=== PATIENT | male | born 1955 | race Caucasian/White ===

== ENCOUNTER → 2017-08-17 | Outpatient (REF) ==
[2016-05-03 09:41] VITALS: BMI 42.8
[~2017-08-17] MED LIST: ACE500 PO; ASP325 PO; ASPI-1471 PO; ATOR40TA69 PO; ATR80PT PO; BIS10S PR; CANA1TAB2 PO; CANA300T PO; CHOL200074 PO; CITA-128 PO; CITA-139 PO; CITA-141 PO; CLO75 PO; DUL30 PO; DULA1.5P IM; DULO60CA56 PO; EMPA25TA PO; ENA25 PO; EXEN5PEN3 SQ; EZET10TA41 PO; FUR20 PO; FURO-45 PO; FURO20TA19 PO; GLIM1TAB25 PO; GLY5 PO; GLYB1.2524 PO; GOLYTE PO; INSU100I36 SQ; INSU100I8 SC; LAM25 PO; LEV500 PO; LEVO500T PO; LISI-374 PO; LISI20TA29 PO; LOR5/325 PO; MAGN296S35 PO; MET50 PO; MET500 PO; METF-410 PO; METO25TA23 PO; METO25TA93 PO; METO50TA19 PO; MODA200T39 PO; MOM PO; MULT-820 PO; MULT-885 PO; MULT1CAP59 PO; NAP375 PO; NAP500 PO; OMEG-11 PO; ONDA4TAB PO; OXY10 PO; OXYC-763 PO; OXYC-869 PO; OXYGEN INH; OXYGENHOME INH; PER PO; PHENA200 PO; PIOG30TA3 PO; PIOGLITAZONE PO; POTA2.5T7 PO; PREG100C44 PO; PREG75CA61 PO; SIMV-1 PO; SITA1TAB17 PO; SPIR25TA78 PO; TAM4 PO; TEST2.5G6 TD; TOLT4CAP13 PO; TOPI100T92 PO; TRA50 PO; TRAM-420 PO; VAR05PT PO; VITA150T2 PO; ZOLP-350 PO; [UNRECOGNIZED DRUG - CODE] PO
== END ==
DX: Z02.9 Encounter for administrative examinations, unspecified (principal)

== ENCOUNTER → 2017-08-17 | Outpatient (CLI) | payer OTHER ==
[2016-05-03 09:41] VITALS: BMI 42.8
== END ==
LOC: LAB 08:59
PROVIDERS: ATTEND Internal Medicine Endocrinology, Diabetes & Metabolism
DX: E11.21 Type 2 diabetes mellitus with diabetic nephropathy (principal)
CPT/HCPCS: 83036

== ENCOUNTER → 2017-09-20 | Outpatient (CLI) | payer OTHER ==
[2016-05-03 09:41] VITALS: BMI 42.8
[~2017-09-20] MED LIST changes: +REGADENOSON 0.4 MG/5 ML SYR ONE
--- NOTE | 2017-09-20 17:15 | RT STRESS TEST REPORT ---
FACILITY: [facility] [place] PATIENT NAME: KRISH SCHAFFER : [id number] MR: [id number] V: [id number] EXAM DATE: ORDERING PHYSICIAN: DI JARRETT TECHNOLOGIST: Rory Acquisition Time: 2017-09-20 14:21:45 Total Exercise Time: 00:01:00 Test Indications: Screening for CAD Medications: Protocol: LEXISCAN Max HR: 078 BPM 49% of Pred: 157 BPM Max BP: 110/068 mmHG Max Work Load: 1.0 METS Stress was performed using Lexiscan protocol. He did experience some nausea with the infusion (resolv ed quickly). No significant EKG changes or dysrhythmias were noted. Recovery was uneventful. Await Myoview images. Confirmed by GABRIEL READ ([id number]) on 09/20/2017 5:15:02 PM Referred By: Overread By: GABRIEL READ
--- NOTE | 2017-09-21 08:09 | RADIOLOGY IMAGING REPORT ---
FACILITY: [facility] - [place] PATIENT NAME: Drake Nava : 1955 MR: [id number] V: [id number] EXAM DATE: ORDERING PHYSICIAN: DI JARRETT TECHNOLOG[place]: [place] [facility] [place] N[place] : 1955 Visit/Account:[id number] Date of Sevice: 09/20/2017 EXAMINATION: Single isotope SPECT imaging with regadenoson infusion and gated SPECT imaging. DATE OF EXAMINATION: September 20, 2017. DATE OF INTERPRETATION: September 21, 2017. REQUESTING PHYSICIAN: DI JARRETT. INDICATION: The patient is a 62-year-old male evaluated for coronary artery disease. PROCEDURE: After informed consent the patient received an intravenous injection of 16.1 mCi of Tc-99 m sestamibi followed at an appropriate time interval by rest imaging. The patient then subsequently received an intravenous infusion of 0.4 mg of regadenoson per protocol without complication. Resting heart rate was 58 bpm with a peak heart rate of 78 bpm. Blood pressure at rest was 110 / 68 and fol lowing infusion was 110 / 53. Baseline EKG demonstrates normal sinus rhythm with nonspecific QS wave s V1 through V2. There were no EKG changes of ischemia following infusion. Symptoms were nonspecifi c. The patient then received an intravenous injection of 34.3 mCi of Tc-99m sestamibi followed by st ress imaging. RAW DATA: Examination of the summed raw data revealed a good quality study. MYOCARDIAL PERFUSION: The tomographic images demonstrate a severe decrease in myocardial perfusion t racer uptake in the basal to inferior chowdhury and a moderate decrease in tracer uptake in the basal to mid inferoseptal chowdhury wall seen on both stress and rest images with no reversibility. GATED IMAGES: The gated images demonstrate an ejection fraction 63% with inferior akinesis. IMPRESSION: 1. Abnormal myocardial perfusion scan with evidence of a prior myocardial infarction involving the i nferior and inferoseptal chowdhury. No inducible ischemia noted. 2. Abnormal myocardial perfusion scan. 3. Normal LV systolic function; LVEF 63%. 4. Based on the results of this exam, the patient appears to be at intermediate risk for future cardi ovascular events. Report Dictated By: Tiffanie Winters at 09/21/2017 8:03 AM Report E-Signed By: Tiffanie Winters at 09/21/2017 8:06 AM WSN:[id number]
== END ==
LOC: RESP 00:37
PROVIDERS: ATTEND Nurse Practitioner Family
DX: R94.30 Abnormal result of cardiovascular function study, unspecified (principal)
CPT/HCPCS: 78452; A9500; J2785; 93017

== ENCOUNTER → 2017-10-25 | Outpatient (CLI) | payer OTHER ==
[2016-05-03 09:41] VITALS: BMI 42.8
[~2017-10-25] MED LIST changes: -REGADENOSON 0.4 MG/5 ML SYR ONE
== END ==
LOC: LAB 09:58
PROVIDERS: ATTEND Internal Medicine
DX: I25.10 Atherosclerotic heart disease of native coronary artery without angina pectoris (principal); I10 Essential (primary) hypertension; E78.00 Pure hypercholesterolemia, unspecified
CPT/HCPCS: 36415; 82040; 82247; 82310; 82374; 82435; 82465; 82565; 82947; 83718; 84075; 84132; 84155; 84295; 84450; 84460; 84478; 84520

== ENCOUNTER → 2017-12-04 | Outpatient (CLI) | payer OTHER ==
[2016-05-03 09:41] VITALS: BMI 42.8
== END ==
LOC: LAB 07:40
PROVIDERS: ATTEND Internal Medicine Endocrinology, Diabetes & Metabolism
DX: E11.21 Type 2 diabetes mellitus with diabetic nephropathy (principal)
CPT/HCPCS: 82465; 83036; 83718; 84478

== ENCOUNTER → 2017-12-04 | Outpatient (CLI) | payer OTHER ==
[2016-05-03 09:41] VITALS: BMI 42.8
[2017-12-04 08:15] LABS: PLATELET COUNT, AUTOMATED 157 K/uL (150-450)
== END ==
LOC: LAB 07:43
PROVIDERS: ATTEND Internal Medicine Nephrology
DX: I12.9 Hypertensive chronic kidney disease with stage 1 through stage 4 chronic kidney disease, or unspecified chronic kidney disease (principal); N18.3 Chronic kidney disease, stage 3 (moderate); R80.1 Persistent proteinuria, unspecified
CPT/HCPCS: 36415; 82040; 82247; 82310; 82374; 82435; 82565; 82570; 82947; 84075; 84100; 84132; 84155; 84156; 84295; 84450; 84460; 84520; 85025

== ENCOUNTER 2018-02-20 08:00 | Outpatient (RCR) | payer OTHER ==
[2016-05-03 09:41] VITALS: BMI 42.8
[2018-01-15 19:08] VITALS: BP 104/52
[2018-01-15 19:09] VITALS: BP 92/48
--- NOTE | 2018-01-15 19:41 | CARDIAC REHAB PLAN OF CARE ---
Physician: Cary Kay PROPERTIES SUPERVISOR Patient is being seen: Red Browne Medical Diagnosis: [place], Stent x 1 (2005) Date of Initial Evaluation: SHORT TERM GOALS Short Term Goals Due Date: 02/14/18 Short Term Goals: 62 year old phase II male patient comes to cardiac rehab with CAD and a 2006 [place] with 1 stent placed. The 5'11", 316 pound, diabetic patient has been a heavy smoker for 47 years and did quit two weeks ago. During the initial 6-minute walk test the patient needed 1 stop to rest and achieved 1.6 MPH, with SPO2 levels dropping to 75% on room air, and the rubble placer showing a NSR and max rate reaching 90. The Jan (RPE) scale went from 2 at 1 minute to 7 at minute 6. Short term goals are set to ride a bike at 3.0 METs or higher and include walking either the track or a treadmill at 1.5-2.0 mph achieving a THR zone of 86-102 or 55-65% of max heart rate. Patient will also need to adjust diet to follow a diabetic and heart healthy plan and to reduce sugar and refined carbohydrates. 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 Patient will also adjust diet to diabetic and heart friendly with portion control to allow for a safe weight loss. Jail Goals Met: Enterprise Project Manager Goals Not Met Due To: PATIENT'S GOALS Patient Goals Due Date: 02/14/18 Patient Goals: Patient goals are to improve health, lose weight and remain active. Patient Goals Met: Patient Goals Not Met Due To: Cardiac Rehabilitation Plan of Care Comment: The cardiac rehab staff will monitor, record, and evaluate vitals, ECG, and exercise results to provide the best plan of care for the patient throughout the 36 visit phase II program. CR staff will motivate and educate the patient during visits for rehab. STANLEY
[2018-01-16 13:24] VITALS: BP_SYST 112; BP_SYST 122; BP_DIAS 52; BP_DIAS 56
[2018-01-21 08:36] VITALS: BP 124/60
[2018-01-21 08:37] VITALS: BP 122/58
[2018-01-23 13:02] VITALS: BP 118/68
[2018-01-23 13:03] VITALS: BP 110/60
[2018-01-25 13:05] VITALS: BP 100/56
[2018-01-25 13:06] VITALS: BP 110/58
[2018-01-28 13:00] VITALS: BP 132/64
[2018-01-28 13:01] VITALS: BP 124/60
[2018-02-04 13:02] VITALS: BP 136/60
[2018-02-04 13:04] VITALS: BP 116/58
[2018-02-08 13:18] VITALS: BP 130/54
[2018-02-08 13:19] VITALS: BP 126/60
[2018-02-11 13:06] VITALS: BP 120/62
[2018-02-11 13:07] VITALS: BP 120/62
--- NOTE | 2018-02-13 18:21 | CARDIAC REHAB PLAN OF CARE ---
Physician: Cary Kay ONLINE MARKETING DIRECTOR Patient is being seen: Red Browne Medical Diagnosis: [place], stent x 1 (2005) Date of Initial Evaluation: January 15, 2018 SHORT TERM GOALS Short Term Goals Due Date: 03/18/18 Short Term Goals: 62 year old phase II male patient comes to cardiac rehab with CAD and a 2006 [place] with 1 stent placed. The 5'11", 316 pound, diabetic patient has been a heavy smoker for 47 years and did quit two weeks ago. During the initial 6-minute walk test the patient needed 1 stop to rest and achieved 1.6 MPH, with SPO2 levels dropping to 75% on room air, and the deicer kit assembler showing a NSR and max rate reaching 90. The Jan (RPE) scale went from 2 at 1 minute to 7 at minute 6. Short term goals are set to ride a bike at 3.0 METs or higher and include walking either the track or a treadmill at 1.5-2.0 mph achieving a THR zone of 86-102 or 55-65% of max heart rate. Patient will also need to adjust diet to follow a diabetic and heart healthy plan and to reduce sugar and refined carbohydrates. Short Term Goals Met: Patient has made 9 visits for cardiac rehab and tolerates up to 35 minutes of a mix of moderate level and below moderate level exercise, followed by weight resistance exercise. Patient will have 15 minutes of upright bike achieving 3.0-3.5 METs. Patient does walk laps that will increase his HR in to his target zone. Short Term Goals Not Met Due To: Patient also walks on the treadmill and only is able to tolerate around 1.6 METs. SUPERVISOR AGENCY APPOINTMENTS GOALS Nursing Home Goal Due Date: 04/18/18 Nursing Home Goals: terminal worker goals are to remain consistent with exercise and diet. Patient needs a heart healthy diet with portion control to also start losing weight. Patient is 316 pounds with a healthy BMI max at 179 pounds. Patient also needs to remain tobacco free. Funeral Greeter Goals Met: Nursing Home Goals Not Met Due To: Patient is one third through the program at 12 visits and will need to improve consistency and increase intensity and overall volume of exercise to achieve parts counterman goals. PATIENT'S GOALS Patient Goals Due Date: 03/18/18 Patient Goals: To improve health and extend life and remain active. Patient Goals Met: Patient has complained of left hip pain recently, which he describes as a three year ongoing complaint. On the days this pain is present his workout is shortened. Patient Goals Not Met Due To: Cardiac Rehabilitation Plan of Care Comment: The cardiac rehab staff will continue to monitor, record , and evaluate vitals, ECG, and exercise results to provide the best plan of care throughout the 36 visit phase II program. CR staff will educate and motivate the patient during visits for rehab. STANLEY
[2018-02-15 12:57] VITALS: BP_SYST 110; BP_SYST 134; BP_DIAS 60
[~2018-02-20 08:00] MED LIST changes: -CITA-139 PO; +CITA-145 PO; -METF-410 PO; +METF-411 PO; -PIOG30TA3 PO; +PIOG30TA71 PO; -SPIR25TA78 PO; +SPIR25TA80 PO
[2018-02-20 12:59] VITALS: BP 126/70
[2018-02-20 13:00] VITALS: BP 128/66
--- NOTE | 2018-03-22 17:29 | CARDIAC REHAB PLAN OF CARE ---
Physician: Eliza FITZGERALD Patient is being seen: Red Browne Medical Diagnosis: [place] (2005) Date of Initial Evaluation: January 15, 2018 SHORT TERM GOALS Short Term Goals Due Date: 04/22/18 Short Term Goals: 62 year old phase II male patient comes to cardiac rehab with CAD and a 2006 [place] with 1 stent placed. The 5'11", 316 pound, diabetic patient has been a heavy smoker for 47 years and did quit two weeks ago. During the initial 6-minute walk test the patient needed 1 stop to rest and achieved 1.6 MPH, with SPO2 levels dropping to 75% on room air, and the monitoring and evaluation advisor showing a NSR and max rate reaching 90. The Jan (RPE) scale went from 2 at 1 minute to 7 at minute 6. Short term goals are set to ride a bike at 3.0 METs or higher and include walking either the track or a treadmill at 1.5-2.0 mph achieving a THR zone of 86-102 or 55-65% of max heart rate. Patient will also need to adjust diet to follow a diabetic and heart healthy plan and to reduce sugar and refined carbohydrates. Short Term Goals Met: Patient has made a total of 11 visits and hasn't been to cardiac rehab for 30 days. On February 20, 2018 the patient tolerated 23 minutes on the treadmill at 2 METs, and 17 minutes on the upright bike at 3.4 METs, followed by weight resistance on the rehab chair. Short Term Goals Not Met Due To: Patient has not been able to be consistent with visits and has made very little increase in duration and intensity of exercise through the first 11 visits. Patients weight remains the same. DETENTION GOALS Halfway Goal Due Date: 05/22/18 Halfway Goals: [facility] goals remain the same and that is to be consistent with regular exercise. Patient will need to increase duration and intensity of exercise if the consistency of achieving 150 minutes each week of cardio exercise. Patient also needs to adjust diet and really try to lose weight. Patient also needs to remain smoke free. Play Back Operator Goals Met: Halfway Goals Not Met Due To: None of the longterm goals for exercise or diet and body weight have been met. PATIENT'S GOALS Patient Goals Due Date: 04/22/18 Patient Goals: Patient goals are to improve cardiac and overall health, and to lose weight. Patient would like to remain active. Patient Goals Met: Patient has complained of left hip pain recently, which he describes as a three year ongoing complaint. On the days this pain is present his workout is shortened. Patient Goals Not Met Due To: Cardiac Rehabilitation Plan of Care Comment: The cardiac rehab staff will continue to monitor, record, and evaluate vitals, ECG, and exercise results to provide the best plan of care for the patient throughout the 36 visit phase II program. CR staff will motivate and educate the patient during visits for rehab. STANLEY
== END 2018-02-20 18:00 | disposition home or self-care (01) ==
LOC: CARD 08:00
PROVIDERS: ATTEND Nurse Practitioner Family
DX: I25.10 Atherosclerotic heart disease of native coronary artery without angina pectoris (principal); I25.2 Old myocardial infarction; E11.9 Type 2 diabetes mellitus without complications; Z98.890 Other specified postprocedural states; Z87.891 Personal history of nicotine dependence; Z99.89 Dependence on other enabling machines and devices; M25.552 Pain in left hip
CPT/HCPCS: 93798

== ENCOUNTER → 2018-03-12 | Outpatient (CLI) | payer OTHER ==
[2016-05-03 09:41] VITALS: BMI 42.8
--- NOTE | 2018-03-12 17:19 | RADIOLOGY IMAGING REPORT ---
FACILITY: PATIENT NAME: Drake Nava : 1955 MR: [id number] V: [id number] EXAM DATE: ORDERING PHYSICIAN: ID JARRETT TECHNOLOGIST: Location: [facility] - [place] Patient: Drake Nava : 1955 Visit/Account:[id number] Date of Sevice: 03/12/2018 Exam type: LUMBAR SPINE 2 OR 3 VIEW History: Fall, radiculopathy Comparison: July 07, 2008. Findings: And AP and lateral view of lumbar spine demonstrate five lumbar type vertebral bodies. There is no e vidence of acute fracture or subluxation. There is mild disc space narrowing at L4-5 and L5-S1. Thi s mild disc space narrowing at T11-12 incidentally noted are bilateral iliac stents IMPRESSION: 1. Mild degenerative changes the lumbar spine although no evidence of acute fracture or subluxation seen Report Dictated By: Viri Garcia MD at 03/12/2018 5:13 PM Report E-Signed By: Viri Garcia MD at 03/12/2018 5:15 PM WSN:[id number]
== END ==
LOC: RAD 16:30
PROVIDERS: ATTEND Nurse Practitioner Family
DX: M47.896 Other spondylosis, lumbar region (principal)
CPT/HCPCS: 72100

== ENCOUNTER → 2018-03-29 | Outpatient (CLI) | payer OTHER ==
[2016-05-03 09:41] VITALS: BMI 42.8
--- NOTE | 2018-03-29 17:41 | RADIOLOGY IMAGING REPORT ---
FACILITY: [facility] [place] PATIENT NAME: Drake Nava : 1955 MR: [id number] V: [id number] EXAM DATE: ORDERING PHYSICIAN: DI JARRETT TECHNOLOGIST: Location: [facility] [place] Patient: Drake Nava : 1955 Visit/Account:[id number] Date of Sevice: 03/29/2018 EXAMINATION: MRI lumbar spine without IV contrast HISTORY: Low back pain. COMPARISON: Lumbar spine MRI from 07/07/2008 and lumbar spine radiographs from 03/12/2018. TECHNIQUE: Multi-planar, multi-sequence lumbar spine MRI was performed without intravenous contrast administration. FINDINGS: Alignment: Normal. Vertebral marrow signal: Negative. Distal thoracic cord: Negative. Conus: negative, terminates at T12-L1. Cauda equina: Negative. Paravertebral soft tissues: Negative. Visualized abdominal and pelvic structures: Subcentimeter simple right renal cyst partly visualized. Disc spaces: Lower thoracic spine: Disc desiccation with a minimal broad-based disc protrusion at T12-L1 is new. N o significant central canal or foraminal stenosis. L1-2: Minimal concentric disc bulge and bilateral facet hypertrophy without significant central canal or foraminal stenosis. L2-3: Minimal concentric disc bulge and bilateral facet hypertrophy without significant central canal or foraminal stenosis. L3-4: Normal. L4-5: Mild concentric disc bulge and bilateral facet hypertrophy with ligamentum flavum laxity. Mild bilateral foraminal stenosis is new. No significant central canal stenosis. L5-S1: Minimal concentric disc bulge and bilateral facet hypertrophy without significant central larissa l or foraminal stenosis. IMPRESSION: Mild degenerative disc disease and facet arthropathy is slightly worse, with mild bilateral foraminal stenosis at L4-5. No significant spinal stenosis. Please see the findings for description of individ ual level disease. Report Dictated By: Jihan Troncoso MD at 03/29/2018 5:34 PM Report E-Signed By: Jihan Troncoso MD at 03/29/2018 5:37 PM WSN:[id number]
== END ==
LOC: MRI 04:48
PROVIDERS: ATTEND Nurse Practitioner Family
DX: M51.16 Intervertebral disc disorders with radiculopathy, lumbar region (principal); M48.07 Spinal stenosis, lumbosacral region
CPT/HCPCS: 72148

== ENCOUNTER → 2018-05-30 | Outpatient (CLI) | payer OTHER ==
[2016-05-03 09:41] VITALS: BMI 42.8
[~2018-05-30] MED LIST changes: -METF-411 PO; +METF-450 PO
== END ==
LOC: LAB 09:32
PROVIDERS: ATTEND Nurse Practitioner Family
DX: N18.3 Chronic kidney disease, stage 3 (moderate) (principal); E11.9 Type 2 diabetes mellitus without complications; E66.01 Morbid (severe) obesity due to excess calories
CPT/HCPCS: 36415; 82040; 82247; 82310; 82374; 82435; 82465; 82565; 82947; 83036; 83718; 84075; 84132; 84155; 84295; 84450; 84460; 84478; 84520

== ENCOUNTER 2018-08-04 15:10 | Inpatient (IN) | payer OTHER ==
[~2018-08-04] VITALS: Ht 177.8 cm; Wt 145.1 kg
[2018-08-04] MEDS ORDERED: ALBUTEROL/IPRATROPIUM 3 ML NEB NEB ONE ×2 (16:10→19:10)
[2018-08-04 16:19] LABS: PLATELET COUNT, AUTOMATED 276 K/uL (150-450)
--- NOTE | 2018-08-04 16:49 | ER Report ---
History and Physical Time Seen By MD: 15:15 Hx. of Stated Complaint: PAST 2 DAYS TROUBLE BREATHING, WHEEZING, COUGHING UP GREEN MUCUS, RA SATS 65%, SORE THROAT AND DIFFICULTY SWALLOWING HPI/ROS CHIEF COMPLAINT: Difficulty breathing HISTORY OF PRESENT ILLNESS: 63-year-old diabetic, sleep apnea, half a pack-a-day smoker, but no reported coronary artery disease, COPD, CHF, presents with 2 days of dyspnea, cough productive of green sputum, myalgias, sore throat, nausea, chills. Patient has no known sick contacts, no recent travel, has had increasing symptoms as above that he rates as severe. He has not had similar symptoms. REVIEW OF SYSTEMS: Constitutional: chills Eyes: No discharge. ENT: sore throat, painful swallowing Cardiovascular: No chest pain, no palpitations. Respiratory: above Gastrointestinal: No abdominal pain, no vomiting. Genitourinary: no change in urination Musculoskeletal: No back pain. Skin: No rashes. Neurological: moderate headache Remainder of the 14 system rev: Yes Allergies: Coded Allergies: duloxetine (Verified Allergy, Unknown, 08/04/18) Home Meds Reported Medications Donepezil Hcl (DONEPEZIL HCL) 10 Mg Tablet, 10 MG PO QDAY, TAB 08/04/18 Pioglitazone Hcl (PIOGLITAZONE HCL) 30 Mg Tablet, 30 MG PO QDAY 08/04/18 Metformin Hcl (METFORMIN HCL) 1,000 Mg Tablet, 1 TAB PO BID, TAB 08/04/18 Glimepiride (GLIMEPIRIDE) 2 Mg Tablet, 2 MG PO BID 08/04/18 Insulin Degludec (Tresiba Flextouch U-100) 100 Unit/Ml (3 Ml) Insuln.pen 08/04/18 Dulaglutide (Trulicity) 1.5 Mg/0.5 Ml Pen.injctr, 1.75 MG IM QWEEK 02/01/17 Canagliflozin (INVOKANA) 300 Mg Tablet, 300 MG PO DAILY 02/01/17 Metoprolol Succinate (METOPROLOL SUCCINATE) 50 Mg Tab.er.24h, 1 TAB PO BID, TAB 02/01/17 Citalopram Hydrobromide (CITALOPRAM HBR) 20 Mg Tablet, 40 MG PO QDAY, #5 TAB 05/18/16 Furosemide (FUROSEMIDE) 20 Mg Tablet, 1 TAB PO QDAY, TAB 10/20/16 Atorvastatin Calcium (ATORVASTATIN CALCIUM) 40 Mg Tablet, 1 TAB PO QPM, TAB 05/01/16 Lisinopril (LISINOPRIL) 20 Mg Tablet, 20 MG PO QPM, TAB 05/01/16 Oxygen (OXYGEN) Inha, 3 L INH QHS, L 05/01/16 Ezetimibe (ZETIA) 10 Mg Tablet, 10 MG PO QDAY, TAB 05/01/16 Multivitamin (DAILY VITAMIN) 1 Each Tablet, 1 EACH PO QDAY 02/24/15 Vitamin B Complex & Vit C No.4 (SUPER B COMPLEX) 150 Mg Tablet, 150 MG PO QDAY 02/24/15 Cholecalciferol (Vitamin D3) (VITAMIN D-3) 2,000 Unit Capsule, 5000 UNIT PO QDAY, CAPSULE 02/24/15 Aspirin (ASPIR 81) 81 Mg Tablet.dr, 81 MG PO QDAY, TAB 02/24/15 Discontinued Reported Medications [place]-3 Fatty Acids/Fish Oil (FISH OIL 1,000 MG CAPSULE) 1 Each Capsule, 1 EACH PO DAILY, CAPSULE 02/01/17 Insulin Degludec (Tresiba Flextouch U-100) 100 Unit/Ml (3 Ml) Insuln.pen, 20 UNITS SC QAM 02/01/17 [poiglitazone] No Conflict Check, 30 MG PO DAILY 02/01/17 Glimepiride (GLIMEPIRIDE) 1 Mg Tablet, 1 MG PO BID 02/01/17 Metformin Hcl (METFORMIN HCL) 500 Mg Tablet, 1 TAB PO BID, TAB 02/01/17 Spironolactone (SPIRONOLACTONE) 25 Mg Tablet, 0.5 TAB PO QODAY, TAB 05/18/16 Reviewed Nurses Notes: Yes Old Medical Records Reviewed: Yes Hx Smoking: Yes (5 cigarettes per day X 40+YRS) Smoking Status: Current: Every Day Smoker Exposure to Second Hand Smoke?: Yes Hx Substance Use Disorder: No Hx Alcohol Use: No Constitutional Vital Sign - Last 24 Hours 08/04/18 08/04/18 08/04/18 08/04/18 15:52 16:01 16:28 16:28 Temp 98.9 Pulse 92 91 Resp 22 20 B/P (MAP) 129/69 Pulse Ox 65 89 O2 Delivery Room Air Nasal Cannula O2 Flow Rate 4.0 4.0 08/04/18 17:37 Temp 100.5 Physical Exam General Appearance: The patient is alert, acutely dyspneic, frequent frothy cough. Eyes: Pupils equal and round no pallor or injection. ENT, Mouth: Mucous membranes are moist. Erythematous oropharynx Respiratory: no retractions, occ basilar ronchi Cardiovascular: Regular rate and rhythm. ii/vi murmur, slightly distant heart sounds Gastrointestinal: Abdomen is soft and non tender, no masses, bowel sounds normal. Neurological: alert, oriented, moves all ext Skin: Warm and dry, no rashes. Musculoskeletal: Extremities mild edema DIFFERENTIAL DIAGNOSIS: After history and physical exam differential diagnosis was considered for shortness of breath including but not limited to pulmonary infectious process, COPD, asthma, pulmonary embolus and congestive heart failure, acs, or other emergent etiology. Medical Decision Making Data Points Result Diagram: 08/04/18 1547 08/04/18 1547 Laboratory Hematology Test 08/04/18 15:47 08/04/18 16:33 08/04/18 16:43 Red Blood Count 4.71 M/uL (4.00-5.60) Mean Corpuscular Volume 85.0 fL (80.0-96.0) Mean Corpuscular Hemoglobin 26.7 pg (26.0-33.0) Mean Corpuscular Hemoglobin Concent 31.4 g/dL (32.0-36.0) Red Cell Distribution Width 15.8 % (11.5-14.5) Mean Platelet Volume 8.6 fL (7.2-11.1) Neutrophils (%) (Auto) 82.1 % (39.4-72.5) Lymphocytes (%) (Auto) 5.1 % (17.6-49.6) Monocytes (%) (Auto) 12.2 % (4.1-12.4) Eosinophils (%) (Auto) 0.4 % (0.4-6.7) Basophils (%) (Auto) 0.2 % (0.3-1.4) Nucleated RBC Relative Count (auto) 0.1 /100WBC Neutrophils # (Auto) 12.1 K/uL (2.0-7.4) Lymphocytes # (Auto) 0.8 K/uL (1.3-3.6) Monocytes # (Auto) 1.8 K/uL (0.3-1.0) Eosinophils # (Auto) 0.1 K/uL (0.0-0.5) Basophils # (Auto) 0.0 K/uL (0.0-0.1) Nucleated RBC Absolute Count (auto) 0.02 K/uL Sodium Level 141 mmol/L (137-145) Potassium Level 4.4 mmol/L (3.5-5.0) Chloride Level 109 mmol/L (98-107) Carbon Dioxide Level 20 mmol/L (22-30) Blood Urea Nitrogen 40 mg/dl (9-21) Creatinine 2.10 mg/dl (0.66-1.25) Glomerular Filtration Rate Calc 32.0 Random Glucose 74 mg/dl (75-110) Lactate 1.6 mmol/L (0.7-2.1) Calcium Level 9.2 mg/dl (8.4-10.2) Total Bilirubin 0.4 mg/dl (0.2-1.3) Aspartate Amino Transf (AST/SGOT) 35 U/L (0-35) Alanine Aminotransferase (ALT/SGPT) 39 U/L (0-56) Alkaline Phosphatase 114 U/L (0-126) Troponin I 0.075 ng/ml B-Type Natriuretic Peptide 203 pg/ml (0-100) Total Protein 5.9 g/dl (6.3-8.2) Albumin 3.2 g/dl (3.5-5.0) Lipase 70 U/L (23-300) Influenza Virus Type A (PCR) Negative (NEGATIVE) Influenza Virus Type B (PCR) Negative (NEGATIVE) Blood Gas Puncture Site Right radial Blood Gas Patient Temperature 99.1 DEGREES Arterial Blood pH 7.31 (7.35-7.45) Arterial Blood Partial Pressure CO2 37 mmHg (32-37) Arterial Blood Partial Pressure O2 59 mmHg (60-80) Arterial Blood HCO3 19 mmol/L (20-26) Arterial Blood Oxygen Saturation 88 % (92-100) Arterial Blood Base Excess -8.0 mmol/L Eduardo Test Acceptable Oxygen Liters/Minute 37 Chemistry Test 08/04/18 15:47 08/04/18 16:33 08/04/18 16:43 White Blood Count 14.7 k/uL (4.5-11.0) Red Blood Count 4.71 M/uL (4.00-5.60) Hemoglobin 12.6 g/dL (14.0-18.0) Hematocrit 40.1 % (42.0-52.0) Mean Corpuscular Volume 85.0 fL (80.0-96.0) Mean Corpuscular Hemoglobin 26.7 pg (26.0-33.0) Mean Corpuscular Hemoglobin Concent 31.4 g/dL (32.0-36.0) Red Cell Distribution Width 15.8 % (11.5-14.5) Platelet Count 276 K/uL (150-450) Mean Platelet Volume 8.6 fL (7.2-11.1) Neutrophils (%) (Auto) 82.1 % (39.4-72.5) Lymphocytes (%) (Auto) 5.1 % (17.6-49.6) Monocytes (%) (Auto) 12.2 % (4.1-12.4) Eosinophils (%) (Auto) 0.4 % (0.4-6.7) Basophils (%) (Auto) 0.2 % (0.3-1.4) Nucleated RBC Relative Count (auto) 0.1 /100WBC Neutrophils # (Auto) 12.1 K/uL (2.0-7.4) Lymphocytes # (Auto) 0.8 K/uL (1.3-3.6) Monocytes # (Auto) 1.8 K/uL (0.3-1.0) Eosinophils # (Auto) 0.1 K/uL (0.0-0.5) Basophils # (Auto) 0.0 K/uL (0.0-0.1) Nucleated RBC Absolute Count (auto) 0.02 K/uL Glomerular Filtration Rate Calc 32.0 Lactate 1.6 mmol/L (0.7-2.1) Calcium Level 9.2 mg/dl (8.4-10.2) Total Bilirubin 0.4 mg/dl (0.2-1.3) Aspartate Amino Transf (AST/SGOT) 35 U/L (0-35) Alanine Aminotransferase (ALT/SGPT) 39 U/L (0-56) Alkaline Phosphatase 114 U/L (0-126) Troponin I 0.075 ng/ml B-Type Natriuretic Peptide 203 pg/ml (0-100) Total Protein 5.9 g/dl (6.3-8.2) Albumin 3.2 g/dl (3.5-5.0) Lipase 70 U/L (23-300) Influenza Virus Type A (PCR) Negative (NEGATIVE) Influenza Virus Type B (PCR) Negative (NEGATIVE) Blood Gas Puncture Site Right radial Blood Gas Patient Temperature 99.1 DEGREES Arterial Blood pH 7.31 (7.35-7.45) Arterial Blood Partial Pressure CO2 37 mmHg (32-37) Arterial Blood Partial Pressure O2 59 mmHg (60-80) Arterial Blood HCO3 19 mmol/L (20-26) Arterial Blood Oxygen Saturation 88 % (92-100) Arterial Blood Base Excess -8.0 mmol/L Eduardo Test Acceptable Oxygen Liters/Minute 37 EKG/Imaging EKG Interpretation 12 lead EKG: Rhythm: normal sinus rhythm [place]: normal QRS: low voltage ST segments: no sig elevation/ depression. Flipped I III [ ] Monitor Interpretation: Normal Sinus Rhythm ED Course/Re-evaluation ED Course 63-year-old diabetic with chronic kidney disease presents with 2 days of upper respiratory and lower respiratory symptoms. His initial O2 sats are in the mid 60s. He responds to NC and maintains sats in ED. Ultimately, findings c/w poss viral illness as no clear bact source, with prob exacerbation of chf (though no clear underlying dx), and elevated trop due to either demand ischemia vs spurious due to ckd, but less likely as primary source. Upon evaluation by hospitalist, he feels that findings may be c/w bact pneumonia and will start abx, cs. Decision to Disposition Date: Aug 04, 2018 Decision to Disposition Time: 17:56 Depart Departure Latest Vital Signs Vital Signs Date Time Temp Pulse Resp B/P (MAP) Pulse Ox O2 Delivery O2 Flow Rate FiO2 08/04/18 17:37 100.5 08/04/18 16:28 89 Nasal Cannula 4.0 08/04/18 16:28 91 20 08/04/18 15:52 129/69 Impression: Primary Impression: Hypoxemia Additional Impressions: Elevated troponin Pulmonary congestion Condition: Stable Disposition: Admitted from ER Referrals: DI JARRETT (PCP) Problem Qualifiers ANA GRAVES MD Aug 04, 2018 16:49
[2018-08-04] MEDS ORDERED: NS(*) 0.9% 1000 ML BAG 1,000 ML IV ONE ×2 (16:50→19:00)
--- NOTE | 2018-08-04 17:21 | RADIOLOGY IMAGING REPORT ---
[place] [facility] [place] NAME: Drake Nava : 1955 MR: [id number] V: [id number] EXAM DATE: ORDERING PHYSICIAN: ANA GRAVES TECHNOLOGIST: [place] [facility] [place] N[place] : 1955 Visit/Account:[id number] Date of Sevice: 08/04/2018 CHEST SINGLE AP Indication: Dyspnea.. Comparison: 05/01/2016. Findings: Cardiac silhouette remains mildly enlarged but unchanged given the difference in technique. Mediasti nal silhouette and pulmonary vessels within normal limits. There is no focal infiltrate or lobar consolidation. No pneumothorax or pleural effusion. No discrete nodule. Mild interstitial changes are again present. Upper abdomen is unremarkable. No acute bony abnormality. IMPRESSION: 1. Stable mildly enlarged cardiac silhouette. There are again mild interstitial changes which could be due to very early edema versus chronic underlying interstitial changes. No focal infiltrate. Report Dictated By: Juan Love at 08/04/2018 5:17 PM Report E-Signed By: Juan Love at 08/04/2018 5:19 PM WSN:[id number]
[2018-08-04] MEDS ORDERED: LIDOCAINE 2% VISC SLN 15ML UDC PO ONE (17:45)
[2018-08-04] MEDS ORDERED: DONE10TA38 PO (18:13)
[2018-08-04] MEDS ORDERED: INSU100I8 SQ (18:13)
[2018-08-04] MEDS ORDERED: METF-452 PO (18:13)
[2018-08-04] MEDS ORDERED: PIOG30TA71 PO (18:13)
[2018-08-04] MEDS ORDERED: GLIM2TAB43 PO (18:13)
[2018-08-04] MEDS ORDERED: ALBUTEROL 2.5 MG/3 ML NEB NEB PRN (19:00)
[2018-08-04] MEDS ORDERED: ACETAMINOPHEN 325 MG TAB PO ONE (19:00)
[2018-08-04] MEDS ORDERED: methylPREDNIS SUCC 125 MG/2ML IVP ONE (19:05)
[2018-08-04] MEDS ORDERED: NICOTINE INH SYSTEM 10 MG/INH INH PRN (19:10)
[2018-08-04 19:37] VITALS: BP 96/52
--- NOTE | 2018-08-04 19:40 | History & Physical ---
History of Present Illness History of Present Illness 63yo male with a h/o obesity, cigarette smoking, T2DM and CAD who came to the ER for cough and SOB. He developed a cough about a week ago. 3 days ago, the cough became productive with green sputum, he became more dyspneic, started wearing his O2 during the day at 3 liters (normally just at night), developed a sore throat that hurt worse with swallowing and developed 2 loose stools a day. Today, he was feeling more dyspneic and came to the ER. He has had chills for a couple of days. He denies new LE edema, orthopnea, nausea, or vomiting. In the ER, he was hypoxic on RA and was placed on O2. He received a DuoNeb and about 250cc of NS. He reports that the O2 made him feel the best. History Problems: (1) Obesity, morbid Status: Chronic (2) Type II diabetes mellitus Status: Chronic (3) Coronary artery disease Status: Chronic (4) Benign hypertension Status: Chronic (5) Osteoarthritis Status: Chronic (6) Depression Status: Chronic (7) SARAH (obstructive sleep apnea) Status: Chronic (8) CKD (chronic kidney disease) stage 3, GFR 30-59 ml/min Status: Chronic Home Meds Reported Medications Donepezil Hcl (DONEPEZIL HCL) 10 Mg Tablet, 10 MG PO QDAY, TAB 08/04/18 Pioglitazone Hcl (PIOGLITAZONE HCL) 30 Mg Tablet, 30 MG PO QDAY 08/04/18 Metformin Hcl (METFORMIN HCL) 1,000 Mg Tablet, 1 TAB PO BID, TAB 08/04/18 Glimepiride (GLIMEPIRIDE) 2 Mg Tablet, 2 MG PO BID 08/04/18 Insulin Degludec (Tresiba Flextouch U-100) 100 Unit/Ml (3 Ml) Insuln.pen 08/04/18 Dulaglutide (Trulicity) 1.5 Mg/0.5 Ml Pen.injctr, 1.75 MG IM QWEEK 02/01/17 Canagliflozin (INVOKANA) 300 Mg Tablet, 300 MG PO DAILY 02/01/17 Metoprolol Succinate (METOPROLOL SUCCINATE) 50 Mg Tab.er.24h, 1 TAB PO BID, TAB 02/01/17 Citalopram Hydrobromide (CITALOPRAM HBR) 20 Mg Tablet, 40 MG PO QDAY, #5 TAB 05/18/16 Furosemide (FUROSEMIDE) 20 Mg Tablet, 1 TAB PO QDAY, TAB 05/18/16 Atorvastatin Calcium (ATORVASTATIN CALCIUM) 40 Mg Tablet, 1 TAB PO QPM, TAB 05/01/16 Lisinopril (LISINOPRIL) 20 Mg Tablet, 20 MG PO QPM, TAB 05/01/16 Oxygen (OXYGEN) Inha, 3 L INH QHS, L 05/01/16 Ezetimibe (ZETIA) 10 Mg Tablet, 10 MG PO QDAY, TAB 05/01/16 Multivitamin (DAILY VITAMIN) 1 Each Tablet, 1 EACH PO QDAY 02/24/15 Vitamin B Complex & Vit C No.4 (SUPER B COMPLEX) 150 Mg Tablet, 150 MG PO QDAY 02/24/15 Cholecalciferol (Vitamin D3) (VITAMIN D-3) 2,000 Unit Capsule, 5000 UNIT PO QDAY, CAPSULE 02/24/15 Aspirin (ASPIR 81) 81 Mg Tablet.dr, 81 MG PO QDAY, TAB 02/24/15 Discontinued Reported Medications Arnold-3 Fatty Acids/Fish Oil (FISH OIL 1,000 MG CAPSULE) 1 Each Capsule, 1 EACH PO DAILY, CAPSULE 02/01/17 Insulin Degludec (Tresiba Flextouch U-100) 100 Unit/Ml (3 Ml) Insuln.pen, 20 UNITS SC QAM 02/01/17 [poiglitazone] No Conflict Check, 30 MG PO DAILY 02/01/17 Glimepiride (GLIMEPIRIDE) 1 Mg Tablet, 1 MG PO BID 02/01/17 Metformin Hcl (METFORMIN HCL) 500 Mg Tablet, 1 TAB PO BID, TAB 02/01/17 Spironolactone (SPIRONOLACTONE) 25 Mg Tablet, 0.5 TAB PO QODAY, TAB 05/18/16 Allergies: Coded Allergies: duloxetine (Verified Allergy, Unknown, 08/04/18) Other Social/Family Hx Lives with . Retired. Smokes 8 cigarettes a day Hx Smoking: Yes (5 cigarettes per day X 40+YRS) Smoking Status: Current: Every Day Smoker Exposure to Second Hand Smoke?: Yes Caffeine Intake: Coffee Caffeine/Cups Per Day: 12-18 Hx Alcohol Use: No Hx Substance Use Disorder: No Social Drug Use: Never Review of Systems All Systems Reviewed/Normal: Yes, Except as Noted Exam Vital Signs Vital Signs Date Time Temp Pulse Resp B/P (MAP) Pulse Ox O2 Delivery O2 Flow Rate FiO2 08/04/18 19:00 127/64 (85) 08/04/18 18:55 101.1 08/04/18 18:50 93 32 91 08/04/18 16:28 Nasal Cannula 4.0 General Appearance: Alert, Awake, Other (Moderate WOB. Wet cough) Neuro: No Gross deficits ENT: Moist Mucous Membranes, Oropharynx Clear, Posterior Pharynx Clear Cardiovascular: Other (Distant heart tones, regular) Respiratory: Other (Diffuse exp wheezes and course BS) GI: Abd Soft and Non-Tender Extremities: No Edema (purplish pigmentation to shins bilaterally) Integumentary: No Jaundice, No Cyanosis Medical Decision Making Data Points Result Diagram: 08/04/18 1547 08/04/18 1547 Item Value Date Time B-Type Natriuretic Peptide 203 pg/ml H 08/04/18 1547 Troponin I 0.075 ng/ml 08/04/18 1547 Total Bilirubin 0.4 mg/dl 08/04/18 1547 Aspartate Amino Transf (AST/SGOT) 35 U/L 08/04/18 1547 Alanine Aminotransferase (ALT/SGPT) 39 U/L 08/04/18 1547 Alkaline Phosphatase 114 U/L 08/04/18 1547 Lipase 70 U/L 08/04/18 1547 Carbon Dioxide Level 20 mmol/L L 08/04/18 1547 Arterial Blood pH 7.31 L 08/04/18 1643 Arterial Blood Partial Pressure CO2 37 mmHg 08/04/18 1643 Arterial Blood Partial Pressure O2 59 mmHg L 08/04/18 1643 Arterial Blood HCO3 19 mmol/L L 08/04/18 1643 Arterial Blood Oxygen Saturation 88 % L 08/04/18 1643 Lactate 1.6 mmol/L 08/04/18 1547 Neutrophils (%) (Auto) 82.1 % H 08/04/18 1547 Lymphocytes (%) (Auto) 5.1 % L 08/04/18 1547 Monocytes (%) (Auto) 12.2 % 08/04/18 1547 Eosinophils (%) (Auto) 0.4 % 08/04/18 1547 Basophils (%) (Auto) 0.2 % L 08/04/18 1547 Influenza Virus Type A (PCR) Negative 08/04/18 1633 Influenza Virus Type B (PCR) Negative 08/04/18 1633 EKG / Imaging EKG Interpretation Waiting for ECG to load on computer Imaging CXR - by my interpretation there are diffusely prominent pulmonary vascular markings which is unchanged from previous, but now has loss of the left hemid iaphragm and blunting of the left costophrenic angle concerning for an infiltrate. Radiologist read: 1. Stable mildly enlarged cardiac silhouette. There are again mild interstitial changes which could be due to very early edema versus chronic underlying interstitial changes. No focal infiltrate. Assessment and Plan Problems: (1) Pneumonia, bacterial Status: Acute Assessment & Plan: He presented with a week of a cough, 3 days of a productive cough with chills and increased work of breathing. He has hypoxia,an elevated WBC and a new opacity in the left base by CXR. He will be started on doxycyclin e and ceftriaxone. He will also be given methylprednisolone with scheduled DuoNeb and prn albuterol because of wheezing on exam and cigarette use. Because of SARAH, will use BiPAP while sleeping if he tolerates it. (2) Elevated brain natriuretic peptide (BNP) level Status: Acute Assessment & Plan: Likely secondary to the strain of the illness. He had a normal EF by myoview about a year ago. Recheck BNP in the morning. (3) Elevated troponin Status: Acute Assessment & Plan: Secondary to CKD and strain of illness. The ECG is reportedly not worrisome, but still waiting for it to load in the computer. Check troponin in the morning. Continue his chronic ASA and statin for his CAD. (4) CKD (chronic kidney disease) stage 3, GFR 30-59 ml/min Status: Chronic Assessment & Plan: Baseline creatinine is about 1.8. It is 2.1 currently. He reports decreased fluid intake over the last couple of days. He is chronically on Lasix for edema, which will be held and lisinopril will be held. Will gently hydrate a total of one liter and follow BMP. (5) Type II diabetes mellitus Status: Chronic Assessment & Plan: Will continue his chronic glimepiride and change the Tresiba to Lantus. Invokana, Trulicity, and metformin will be held. AC and HS glucose with SSI level 2 to cover. (6) Benign hypertension Status: Chronic Assessment & Plan: Hold chronic lisinopril secondary to elevated creatinine and continue metoprolol with parameters. (7) Depression Status: Chronic Assessment & Plan: Continue chronic citalopram, but will hold his donepezil secondary to QTc prolongation. (8) SARAH (obstructive sleep apnea) Status: Chronic (9) Obesity, morbid Status: Chronic Copies to: DI JARRETT SPECTROGRAPHER ; Venous Thromboembolism Antithrombotics Is Pt On Any Antithrombotics?: No Exam Sepsis Risk: No Definite Risk WHIT HODGES MD Aug 04, 2018 19:40
[2018-08-04] MEDS ORDERED: METO25TA93 PO (19:43)
[2018-08-04] MEDS: cefTRIAXone 2 GM VIAL IVP SCH (19:51)
[2018-08-04] MEDS ORDERED: NICOTINE CARTRIDGE 1 EA PO PRN (19:55)
[2018-08-04 20:10] VITALS: BP 109/49
[2018-08-04] MEDS ORDERED: AZITHROMYCIN(*) 500 MG 500 MG in NS(*) 0.9% 250 ML BAG 250 ML IVPB SCH (21:00)
[2018-08-04] MEDS: METOPROLOL TART 50 MG TAB PO SCH (21:00)
[2018-08-04] MEDS: DOXYCYCLINE HYCL 100 MG VIAL 100 MG in NS(*) 0.9% 250 ML BAG 250 ML IV SCH (21:00)
[2018-08-04 21:27] VITALS: BP 121/63
[2018-08-04] MEDS: GLIMEPIRIDE 2 MG TAB PO SCH (21:39)
[2018-08-04] MEDS: ATORVASTATIN 40 MG TAB PO SCH (21:40)
[2018-08-04] MEDS: guaiFENesin 600 MG TABCR PO SCH (21:40)
[2018-08-04 22:50] VITALS: BP 135/66
--- NOTE | 2018-08-04 22:58 | EKG ---
FACILITY: [facility] PATIENT NAME: KRISH SCHAFFER : [id number] MR: [id number] V: [id number] EXAM DATE: ORDERING PHYSICIAN: ANA GRAVES TECHNOLOGIST: MARJORIE Garner Reason : sob, cp Blood Pressure : / mmHG Vent. Rate : 090 BPM Atrial Rate : 090 BPM P-R Int : 196 ms QRS Dur : 086 ms QT Int : 354 ms P-R-T Axes : 052 042 014 degrees QTc Int : 433 ms Normal sinus rhythm Low voltage QRS Cannot rule out Anterior infarct , age undetermined No ST-T abnormalities When compared with ECG of 01-MAY-2016 18:30, Relatively unchanged Confirmed by WHIT HODGES ([id number]) on 08/05/2018 6:39:18 AM Referred By: Confirmed By:WHIT HODGES
[2018-08-05] VITALS (8 sets, daily range): BP systolic 101–132; BP diastolic 54–76; Ht 177.8 cm; Wt 145.1 kg
[2018-08-05] MEDS: methylPREDNIS SUCC 125 MG/2ML IVP SCH ×3 (03:17→18:57)
[2018-08-05] MEDS: ALBUTEROL/IPRATROPIUM 3 ML NEB NEB SCH ×4 (05:35→16:58)
[2018-08-05 06:07] LABS: PLATELET COUNT, AUTOMATED 256 K/uL (150-450)
[2018-08-05] MEDS: INSULIN HUM LISPRO 100 UN/ML 3 ML VIAL SUBQ PRN ×4 (07:58→21:43)
[2018-08-05] MEDS: ASPIRIN 81 MG ENTERIC COATED PO SCH (08:46)
[2018-08-05] MEDS: METOPROLOL TART 50 MG TAB PO SCH (08:46)
[2018-08-05] MEDS: CITALOPRAM HYDROBROM 20 MG TAB PO SCH (08:46)
[2018-08-05] MEDS: PIOGLITAZONE HCL 15 MG TAB PO SCH (08:46)
[2018-08-05] MEDS: EZETIMIBE 10 MG TAB PO SCH (08:46)
[2018-08-05] MEDS: GLIMEPIRIDE 2 MG TAB PO SCH ×2 (08:46→21:39)
[2018-08-05] MEDS: guaiFENesin 600 MG TABCR PO SCH ×2 (08:46→21:39)
[2018-08-05] MEDS: ENOXAPARIN 30 MG/0.3 ML SYR SC SCH (08:47)
[2018-08-05] MEDS ORDERED: INSULIN GLARGINE 100 U/ML 3 ML PEN SUBQ SCH (09:00)
[2018-08-05] MEDS: DOXYCYCLINE HYCL 100 MG VIAL 100 MG in NS(*) 0.9% 250 ML BAG 250 ML IV SCH ×2 (09:42→21:38)
--- NOTE | 2018-08-05 09:46 | Hospitalist Progress Note ---
Subjective Progress Notes Subjective He was admitted for pneumonia. He reports some improvement in symptoms, but is still feeling SOB and has a large amount of sputum production. Patient Complains of: Cardiovascular: No: Chest Pain Respiratory: Cough, Congestion, Shortness of Breath Physical Exam Vital Signs Date Time Temp Pulse Resp B/P (MAP) Pulse Ox O2 Delivery O2 Flow Rate FiO2 08/05/18 09:09 95 18 08/05/18 09:01 92 Nasal Cannula 7.0 08/05/18 06:46 97.6 102/65 (77) 08/05/18 04:00 60.0 Intake and Output 08/05/18 07:00 Intake Total 650 ml Balance 650 ml Intake Oral 150 ml IV Total 500 ml # Voids 2 General Appearance: Alert, Awake, No Acute Distress, Afebrile Neuro: No Gross deficits Cardiovascular: Regular Rate and Rhythm Respiratory: No Respiratory Distress, Other (diminished bilateral bases) GI: Soft and Non-Tender Extremities: Warm, Perfused Psych: Alert & Oriented X3, Appropriate Mood & Affect Result Diagram: 08/05/18 0550 08/05/18 0550 Monitor Interpretation: Normal Sinus Rhythm Assessment and Plan Problems: (1) Pneumonia, bacterial Status: Acute Assessment & Plan: He presented with a week of a cough, 3 days of a productive cough with chills and increased work of breathing. He has hypoxia,an elevated WBC and a new opacity in the left base by CXR. He will be started on doxycycline and ceftriaxone. He will also be given methylprednisolone with scheduled DuoNeb and prn albuterol because of wheezing on exam and cigarette use. Because of SARAH, will use BiPAP while sleeping if he tolerates it. (2) Elevated brain natriuretic peptide (BNP) level Status: Acute Assessment & Plan: Likely secondary to the strain of the illness. He had a normal EF by myoview about a year ago. BNP decreasing this morning . (3) Elevated troponin Status: Acute Assessment & Plan: Secondary to CKD and strain of illness. ECG done in ER shows NSR. Troponin this morning is decreasing. Continue his chronic ASA and statin for his CAD. (4) CKD (chronic kidney disease) stage 3, GFR 30-59 ml/min Status: Chronic Assessment & Plan: Baseline creatinine is about 1.8. Upon admission creatinine was 2.1, decreased to 1.9 this morning. He reports decreased fluid intake over the last couple of days. He is chronically on Lasix for edema, which will be held and lisinopril will be held. He was gently hydrated a total of one liter and follow BMP. (5) Type II diabetes mellitus Status: Chronic Assessment & Plan: Will continue his chronic glimepiride and change the Tresiba to Lantus. Invokana, Trulicity, and metformin will be held. AC and HS glucose with SSI level 2 to cover. (6) Benign hypertension Status: Chronic Assessment & Plan: Hold chronic lisinopril secondary to elevated creatinine and continue metoprolol with parameters. (7) Depression Status: Chronic Assessment & Plan: Continue chronic citalopram, but will hold his donepezil secondary to QTc prolongation. (8) SARAH (obstructive sleep apnea) Status: Chronic (9) Obesity, morbid Status: Chronic Exam Sepsis Risk: Severe Sepsis Risk PAWAN WONG Aug 05, 2018 09:46
[2018-08-05] MEDS ORDERED: NS(*) 0.9% 250 ML BAG 250 ML ONE (09:49)
--- NOTE | 2018-08-05 12:27 | Antimicrobial Stewardship ---
Antimicrobial Stewardship Empiricly appropriate: Yes (CAP- doxycycline and Ceftriaxone) Significant PMH: Yes (DM2, SARAH, ) Support empiric regimen: Yes Comment Started on 08/04/18 - Doxycycline and Ceftriaxone Approriate Cultures done: Yes (Sputum Cx pending, Blood Cx NA) Renal/Hepatic dosing: Yes (CrCl = 37 ml/min) Comment No renal adjustment required for doxycycline or ceftriaxone IV to PO Opportunity: No (WBC still elevated, not yet afebrile for 48H) Determine cumulative duration: Day 2 of treatment Determine standard duration: 7 days total Comment 63 yo M with a history SARAH, CAD, DM2 with complaints of SOB, sputum, week of cough, chills. Chest Xray showed LLL opacity in L base Tmax 101.1 O2 at 7L WBC 14.7 (82.1%) BUN 40 Scr 2.10 Lactate 1.6 08/04 Sputum - NGTD Influenza A and B (-) 1. Pneumonia - Plan to continue treatment with Doxycycline and Ceftriaxone, switch to oral antibiotics when afebrile x 48H, then complete treatment with 7- 10 days of therapy. Will monitor and watch sputum culture and adjust antibi otics as appropriate. Cyndi Phan, PharmD, BCOP CYNDI PHAN Aug 05, 2018 12:27
[2018-08-05] MEDS ORDERED: CITA-141 PO (13:40)
[2018-08-05] MEDS ORDERED: METF-450 PO (13:40)
[2018-08-05] MEDS ORDERED: METO-253 PO (13:40)
[2018-08-05] MEDS: cefTRIAXone 2 GM VIAL IVP SCH (18:54)
[2018-08-05] MEDS ORDERED: NS(*) 0.9% 1000 ML BAG 1,000 ML IV ONE (19:35)
[2018-08-05] MEDS: ATORVASTATIN 40 MG TAB PO SCH (21:39)
[2018-08-05] MEDS: DONEPEZIL HCL 5 MG TAB PO SCH (21:39)
[2018-08-06 03:02] VITALS: BP 121/63
[2018-08-06] MEDS: ALBUTEROL/IPRATROPIUM 3 ML NEB NEB SCH ×4 (05:35→16:54)
[2018-08-06 06:42] VITALS: BP 122/63
[2018-08-06] MEDS: INSULIN HUM LISPRO 100 UN/ML 3 ML VIAL SUBQ PRN ×4 (08:02→21:18)
--- NOTE | 2018-08-06 08:38 | RADIOLOGY IMAGING REPORT ---
FACILITY: [facility] PATIENT NAME: Drake Nava : 1955 MR: [id number] V: [id number] EXAM DATE: ORDERING PHYSICIAN: WHIT HODGES TECHNOLOGIST: [place] [facility] [place]: Drake Nava : 1955 Visit/Account:[id number] Date of Sevice: 08/06/2018 Exam type: CHEST SINGLE AP History: hypoxia Comparison: August 04, 2018. Findings: Cardiomegaly remains unchanged. Mild interstitial prominence of the lungs remains relatively stable there is no evidence of focal infiltrates. Trachea is in midline. IMPRESSION: 1. Cardiomegaly and mildly prominent interstitial markings remain unchanged. Differential diagnosis would include mild interstitial pulmonary edema, chronic changes or interstitial infiltrates. Report Dictated By: Viri Garcia MD at 08/06/2018 8:30 AM Report E-Signed By: Viri Garcia MD at 08/06/2018 8:33 AM WSN:[id number]
[2018-08-06] MEDS: BUDESONIDE 0.5 MG/2 ML NEB NEB SCH ×2 (09:13→16:54)
[2018-08-06] MEDS: guaiFENesin 600 MG TABCR PO SCH ×2 (09:22→21:17)
[2018-08-06] MEDS: ASPIRIN 81 MG ENTERIC COATED PO SCH (09:22)
[2018-08-06] MEDS: DOXYCYCLINE HYCL 100 MG VIAL 100 MG in NS(*) 0.9% 250 ML BAG 250 ML IV SCH ×2 (09:23→21:18)
[2018-08-06] MEDS: EZETIMIBE 10 MG TAB PO SCH (09:23)
[2018-08-06] MEDS: CITALOPRAM HYDROBROM 20 MG TAB PO SCH (09:23)
[2018-08-06] MEDS: PIOGLITAZONE HCL 15 MG TAB PO SCH (09:23)
[2018-08-06] MEDS: GLIMEPIRIDE 2 MG TAB PO SCH ×2 (09:23→21:17)
[2018-08-06] MEDS: INSULIN GLARGINE 100 U/ML 3 ML PEN SUBQ SCH (09:24)
[2018-08-06] MEDS: ENOXAPARIN 30 MG/0.3 ML SYR SC SCH (09:24)
[2018-08-06 09:34] LABS: PLATELET COUNT, AUTOMATED 286 K/uL (150-450)
[2018-08-06] MEDS ORDERED: FUROSEMIDE 20 MG/2 ML VIAL IVP ONE (10:40)
--- NOTE | 2018-08-06 10:46 | Hospitalist Progress Note ---
Subjective Progress Notes Subjective He reports significant improvement in his work of breathing. He still has a O2 requirement of 8 liters. He doesn't report any more visual or tactile hallucinations. Slept well last night. Physical Exam Vital Signs Date Time Temp Pulse Resp B/P (MAP) Pulse Ox O2 Delivery O2 Flow Rate FiO2 08/06/18 09:20 90 20 08/06/18 09:20 91 High-Flow Nasal Cannula 8.0 08/06/18 06:42 98.1 122/63 (82) 08/05/18 04:00 60.0 Intake and Output0 08/06/18 07:00 Intake Total 942 ml Output Total 425 ml Balance 517 ml Intake Oral 942 ml Output Urine Total 425 ml # Voids 3 General Appearance: Alert, Awake, No Acute Distress Cardiovascular: Regular Rate and Rhythm Respiratory: Clear to Auscultation (Decreased air movement to bases ) Extremities: No Edema Result Diagram: 08/06/1892308/06/18923 Imaging CXR - 1. Cardiomegaly and mildly prominent interstitial markings remain unchanged. Differential diagnosis would include mild interstitial pulmonary edema, chronic changes or interstitial infiltrates. Monitor Interpretation: Normal Sinus Rhythm Assessment and Plan Problems: (1) Pneumonia, bacterial Status: Acute Assessment & Plan: He presented with a week of a cough, 3 days of a productive cough with chills and increased work of breathing. He has hypoxia,an elevated WBC and a new opacity in the left base by CXR. He will be started on doxycycline and ceftriaxone. He will also be given methylprednisolone with scheduled DuoNeb and prn albuterol because of wheezing on exam and cigarette use. Because of SARAH, will use BiPAP while sleeping if he tolerates it. (2) Visual hallucination Status: Resolved Assessment & Plan: He had a tactile hallucination of a cat going over his legs and saw a nurse in vintage clothing from the 50's walk through the wall on 08/05. Methylprednisolone was stopped and he got a good nights rest. The hallucinations have stopped. (3) Elevated brain natriuretic peptide (BNP) level Status: Acute Assessment & Plan: Likely secondary to the strain of the illness. He had a normal EF by myoview about a year ago. Will restart his usual Lasix tomorrow for edema and give a dose IV today. (4) Elevated troponin Status: Acute Assessment & Plan: Secondary to CKD and strain of illness. ECG done in ER shows NSR. Troponin decreasing. Continue his chronic ASA and statin for his CAD. (5) CKD (chronic kidney disease) stage 3, GFR 30-59 ml/min Status: Chronic Assessment & Plan: Baseline creatinine is about 1.8. Upon admission creatinine was 2.1, and it decreased to 1.9 with hydration. However, it now is back to 2.1 despite hydration. Restarting diuresis. See above. Continue to hold Lisinopril. (6) Type II diabetes mellitus Status: Chronic Assessment & Plan: Glucose 233-305. He has been continued on his chronic glimepiride. Tresiba to was changed on admission to Lantus, but at 20 units compared to 35 units. Will increase Lantus to 35 units today. Also, methylprednisolone was stoppped. Invokana, Trulicity, and metformin are held. AC and HS glucose with SSI level 2 to cover. (7) Benign hypertension Status: Chronic Assessment & Plan: Hold chronic lisinopril secondary to elevated creatinine and continue metoprolol with parameters. (8) Depression Status: Chronic Assessment & Plan: Continue chronic citalopram, and donepezil. (9) SARAH (obstructive sleep apnea) Status: Chronic (10) Obesity, morbid Status: Chronic Exam Sepsis Risk: Severe Sepsis Risk WHIT HODGES MD Aug 06, 2018 10:46
[2018-08-06 14:47] VITALS: BP 115/49
[2018-08-06 18:36] VITALS: BP 110/55
[2018-08-06] MEDS ORDERED: INFLUENZA VIRUS VAC 0.5ML SYR IM ONLY ONE (19:00)
[2018-08-06] MEDS: cefTRIAXone 2 GM VIAL IVP SCH (19:31)
[2018-08-06] MEDS: ACETAMINOPHEN 325 MG TAB PO PRN (19:31)
[2018-08-06 19:32] VITALS: BP 117/65
[2018-08-06] MEDS ORDERED: DONEPEZIL HCL 5 MG TAB PO ONE (21:00)
[2018-08-06] MEDS: ATORVASTATIN 40 MG TAB PO SCH (21:17)
[2018-08-06] MEDS: DONEPEZIL HCL 5 MG TAB PO SCH (21:17)
[2018-08-06 22:58] VITALS: BP 126/53
[2018-08-07 03:39] VITALS: BP 136/68
[2018-08-07] MEDS: ALBUTEROL/IPRATROPIUM 3 ML NEB NEB SCH ×4 (05:51→18:21)
[2018-08-07] MEDS: BUDESONIDE 0.5 MG/2 ML NEB NEB SCH ×2 (05:54→18:23)
[2018-08-07] MEDS: FUROSEMIDE 20 MG TAB PO SCH (09:00)
[2018-08-07 09:07] VITALS: BP 97/68
[2018-08-07] MEDS: DOXYCYCLINE HYCL 100 MG TAB PO SCH ×2 (09:22→21:00)
[2018-08-07] MEDS: CITALOPRAM HYDROBROM 20 MG TAB PO SCH (09:22)
[2018-08-07] MEDS: guaiFENesin 600 MG TABCR PO SCH ×2 (09:22→21:00)
[2018-08-07] MEDS: CEFDINIR 300 MG CAP PO SCH ×2 (09:22→21:01)
[2018-08-07] MEDS: EZETIMIBE 10 MG TAB PO SCH (09:22)
[2018-08-07] MEDS: PIOGLITAZONE HCL 15 MG TAB PO SCH (09:23)
[2018-08-07] MEDS: ASPIRIN 81 MG ENTERIC COATED PO SCH (09:23)
[2018-08-07] MEDS: GLIMEPIRIDE 2 MG TAB PO SCH ×2 (09:23→21:01)
[2018-08-07] MEDS: INSULIN GLARGINE 100 U/ML 3 ML PEN SUBQ SCH (09:24)
[2018-08-07] MEDS: ENOXAPARIN 30 MG/0.3 ML SYR SC SCH (09:24)
[2018-08-07] MEDS: ACETAMINOPHEN 325 MG TAB PO PRN ×2 (09:29→16:01)
[2018-08-07 09:34] LABS: PLATELET COUNT, AUTOMATED 253 K/uL (150-450)
--- NOTE | 2018-08-07 09:47 | Hospitalist Progress Note ---
Subjective Progress Notes Subjective This patient was admitted for pneumonia. He had no acute events overnight. Patient Complains of: Cardiovascular: No: Chest Pain Respiratory: No: Shortness of Breath Physical Exam Vital Signs Date Time Temp Pulse Resp B/P (MAP) Pulse Ox O2 Delivery O2 Flow Rate FiO2 08/07/18 09:07 98.3 88 24 97/68 (78) 95 High-Flow Nasal Cannula 5.0 08/05/18 04:00 60.0 Intake and Output 08/07/18 07:00 Intake Total 1367 ml Balance 1367 ml Intake Oral 1100 ml IV Total 267 ml # Voids 2 Cardiovascular: Regular Rate and Rhythm Respiratory: Clear to Auscultation Result Diagram: 08/06/1892308/06/18923 Item Value Date Time Sputum Culture - Final Complete 08/04/18 0000 Sputum NORMAL RESPIRATORY ANGUS PRESENT.... Monitor Interpretation: Normal Sinus Rhythm Assessment and Plan Problems: (1) Pneumonia, bacterial Status: Acute Assessment & Plan: His chest x-ray did show bilateral interstitial infiltrates. He also had a fever and elevated WBC at admission. His fever is resolved, but his WBC has increased, likely secondary to steroids. He has been on treatment with ceftriaxone and doxycycline. He converted to oral antibiotics today. (2) Visual hallucination Status: Resolved Assessment & Plan: He did have hallucinations, which were attributed to the steroids. These have been discontinued, and he has had no further symptoms. (3) Elevated brain natriuretic peptide (BNP) level Status: Acute Assessment & Plan: He did have an elevated BNP, but had a normal ejection fraction on a Myoview last year. He is on chronic treatment with Lasix, which has been restarted. (4) Elevated troponin Status: Acute Assessment & Plan: His EKG is unchanged and he has no chest pain. The elevation is likely secondary to his renal disease. (5) CKD (chronic kidney disease) stage 3, GFR 30-59 ml/min Status: Chronic Assessment & Plan: He was slightly elevated above baseline. A repeat level is pending. (6) Type II diabetes mellitus Status: Chronic Assessment & Plan: He was on multiple medications prior to admission. We currently have him on just glimepiride and Lantus. He is on sliding scale level #2. His sugars did elevated with steroids, but are improving since this has been stopped. (7) Benign hypertension Status: Chronic Assessment & Plan: She is on chronic treatment with metoprolol and lisinopril. Both medications are currently on hold. (8) Depression Status: Chronic Assessment & Plan: He is on chronic treatment with citalopram and donepezil. (9) SARAH (obstructive sleep apnea) Status: Chronic (10) Obesity, morbid Status: Chronic Exam Sepsis Risk: Severe Sepsis Risk MICHAEL PORTER DO Aug 07, 2018 09:47
[2018-08-07] MEDS: INSULIN HUM LISPRO 100 UN/ML 3 ML VIAL SUBQ PRN ×3 (11:59→21:10)
[2018-08-07 12:01] VITALS: BP 112/54
[2018-08-07 15:23] VITALS: BP 109/46
[2018-08-07 18:49] VITALS: BP 122/55
[2018-08-07] MEDS: DONEPEZIL HCL 5 MG TAB PO SCH (21:01)
[2018-08-07] MEDS: ATORVASTATIN 40 MG TAB PO SCH (21:01)
[2018-08-07 23:58] VITALS: BP 134/64
[2018-08-08 04:39] VITALS: BP 124/58
[2018-08-08] MEDS: BUDESONIDE 0.5 MG/2 ML NEB NEB SCH ×2 (05:20→17:35)
[2018-08-08] MEDS: ALBUTEROL/IPRATROPIUM 3 ML NEB NEB SCH ×4 (05:20→17:35)
[2018-08-08 08:39] LABS: PLATELET COUNT, AUTOMATED 270 K/uL (150-450)
[2018-08-08] MEDS: FUROSEMIDE 20 MG TAB PO SCH ×2 (09:00→09:46)
[2018-08-08] MEDS: ASPIRIN 81 MG ENTERIC COATED PO SCH (09:45)
[2018-08-08] MEDS: CITALOPRAM HYDROBROM 20 MG TAB PO SCH (09:45)
[2018-08-08] MEDS: EZETIMIBE 10 MG TAB PO SCH (09:45)
[2018-08-08] MEDS: PIOGLITAZONE HCL 15 MG TAB PO SCH (09:46)
[2018-08-08] MEDS: DOXYCYCLINE HYCL 100 MG TAB PO SCH ×2 (09:46→21:22)
[2018-08-08] MEDS: CEFDINIR 300 MG CAP PO SCH ×2 (09:46→21:22)
[2018-08-08] MEDS: INSULIN GLARGINE 100 U/ML 3 ML PEN SUBQ SCH (09:46)
[2018-08-08] MEDS: guaiFENesin 600 MG TABCR PO SCH ×2 (09:46→21:22)
[2018-08-08] MEDS: GLIMEPIRIDE 2 MG TAB PO SCH ×2 (09:46→21:22)
[2018-08-08] MEDS: ENOXAPARIN 30 MG/0.3 ML SYR SC SCH (09:47)
[2018-08-08 09:50] VITALS: BP 107/48
--- NOTE | 2018-08-08 10:21 | Hospitalist Progress Note ---
Subjective Progress Notes Subjective He reports some improvement in symptoms. He did require 10L by CPAP last night. Patient Complains of: Cardiovascular: No: Chest Pain Respiratory: No: Shortness of Breath Physical Exam Vital Signs Date Time Temp Pulse Resp B/P (MAP) Pulse Ox O2 Delivery O2 Flow Rate FiO2 08/08/18 09:33 99 18 08/08/18 09:25 93 High-Flow Nasal Cannula 3.5 08/08/18 04:39 98.1 124/58 (80) 08/05/18 04:00 60.0 Intake and Output 08/08/18 07:00 Intake Total 1860 ml Balance 1860 ml Intake Oral 1860 ml # Voids 3 # Bowel Movements 1 General Appearance: Alert, Awake, No Acute Distress, Afebrile Neuro: No Gross deficits Cardiovascular: Regular Rate and Rhythm Respiratory: No Respiratory Distress, Other (expiratory wheezes present) GI: Soft and Non-Tender Extremities: Warm, Perfused; No Edema Psych: Alert & Oriented X3, Appropriate Mood & Affect Result Diagram: 08/08/18 0821 08/07/18 0928 Monitor Interpretation: Normal Sinus Rhythm Assessment and Plan Problems: (1) Pneumonia, bacterial Status: Acute Assessment & Plan: His chest x-ray did show bilateral interstitial infiltrates. He also had a fever and elevated WBC at admission. His fever is resolved, but his WBC has increased, likely secondary to steroids. He has been on treatment with ceftriaxone and doxycycline. He converted to oral antibiotics 08/07. We will try to decrease oxygen needs today, so patient can hopefully be discharged home tomorrow. (2) Visual hallucination Status: Resolved Assessment & Plan: He did have hallucinations, which were attributed to the st eroids. These have been discontinued, and he has had no further symptoms. (3) Elevated brain natriuretic peptide (BNP) level Status: Acute Assessment & Plan: He did have an elevated BNP, but had a normal ejection fraction on a Myoview last year. He is on chronic treatment with Lasix, which has been restarted. (4) Elevated troponin Status: Acute Assessment & Plan: His EKG is unchanged and he has no chest pain. The elevation is likely secondary to his renal disease. (5) CKD (chronic kidney disease) stage 3, GFR 30-59 ml/min Status: Chronic Assessment & Plan: He was slightly elevated above baseline. Creatinine 1.8. (6) Type II diabetes mellitus Status: Chronic Assessment & Plan: He was on multiple medications prior to admission. We currently have him on just glimepiride and Lantus. He is on sliding scale level #2. His sugars did elevated with steroids, but are improving since this has been stopped. (7) Benign hypertension Status: Chronic Assessment & Plan: She is on chronic treatment with metoprolol and lisinopril. Both medications are currently on hold. (8) Depression Status: Chronic Assessment & Plan: He is on chronic treatment with citalopram and donepezil. (9) SARAH (obstructive sleep apnea) Status: Chronic (10) Obesity, morbid Status: Chronic Exam Sepsis Risk: No Definite Risk PAWAN WONG Aug 08, 2018 10:21
[2018-08-08 10:44] VITALS: BP 102/38
[2018-08-08] MEDS: INSULIN HUM LISPRO 100 UN/ML 3 ML VIAL SUBQ PRN ×3 (12:05→21:26)
--- NOTE | 2018-08-08 14:31 | RADIOLOGY IMAGING REPORT ---
[place] [facility] [place]IENT NAME: Drake Nava : 1955 MR: [id number] V: [id number] EXAM DATE: ORDERING PHYSICIAN: PAWAN WONG TECHNOLOGIST: Location: [facility] - [place] Patient: Drake Nava : 1955 Visit/Account:[id number] Date of Sevice: 08/08/2018 Exam type: CHEST SINGLE AP History: SOB, pneumonia Comparison: August 06, 2018. Findings: Interstitial prominence of the lungs remains relatively unchanged. There is now smaller patchy airsp stephanie consolidation in the left lower lobe and medial right lung base which may represent developing in filtrates and/or atelectasis. The cardiac silhouette is enlarged but unchanged. The trachea is in m idline IMPRESSION: 1. Interstitial prominence of the lungs remains relatively unchanged There are now small patchy areas of airspace consolidation left lower lobe and medial right lung base which may represent developing infiltrates and/or atelectasis Report Dictated By: Viri Garcia MD at 08/08/2018 2:23 PM Report E-Signed By: Viri Garcia MD at 08/08/2018 2:24 PM WSN:[email or web address]
[2018-08-08 15:01] VITALS: BP 114/35
[2018-08-08 18:44] VITALS: BP 117/51
[2018-08-08] MEDS: DONEPEZIL HCL 5 MG TAB PO SCH (21:22)
[2018-08-08] MEDS: ATORVASTATIN 40 MG TAB PO SCH (21:22)
[2018-08-08 23:15] VITALS: BP 121/58
[2018-08-09 03:25] VITALS: BP 128/58
[2018-08-09] MEDS: ALBUTEROL/IPRATROPIUM 3 ML NEB NEB SCH ×2 (05:38→09:35)
[2018-08-09] MEDS: BUDESONIDE 0.5 MG/2 ML NEB NEB SCH (05:39)
[2018-08-09 06:45] VITALS: BP 136/67
[2018-08-09 07:28] VITALS: BP 137/54
[2018-08-09 08:21] LABS: PLATELET COUNT, AUTOMATED 255 K/uL (150-450)
[2018-08-09] MEDS ORDERED: CEF300 PO (09:38)
[2018-08-09] MEDS ORDERED: FLUT1DIS28 IH (09:38)
[2018-08-09] MEDS ORDERED: DOXY-179 PO (09:38)
[2018-08-09] MEDS ORDERED: ALBU8.5H IH (09:53)
[2018-08-09] MEDS: guaiFENesin 600 MG TABCR PO SCH (09:59)
[2018-08-09] MEDS: PIOGLITAZONE HCL 15 MG TAB PO SCH (10:00)
[2018-08-09] MEDS: FUROSEMIDE 20 MG TAB PO SCH (10:00)
[2018-08-09] MEDS: DOXYCYCLINE HYCL 100 MG TAB PO SCH (10:00)
[2018-08-09] MEDS: GLIMEPIRIDE 2 MG TAB PO SCH (10:01)
[2018-08-09] MEDS: CITALOPRAM HYDROBROM 20 MG TAB PO SCH (10:01)
[2018-08-09] MEDS: EZETIMIBE 10 MG TAB PO SCH (10:01)
[2018-08-09] MEDS: CEFDINIR 300 MG CAP PO SCH (10:01)
[2018-08-09] MEDS: ENOXAPARIN 30 MG/0.3 ML SYR SC SCH (10:01)
[2018-08-09] MEDS: ASPIRIN 81 MG ENTERIC COATED PO SCH (10:02)
[2018-08-09] MEDS: INSULIN GLARGINE 100 U/ML 3 ML PEN SUBQ SCH (10:02)
--- NOTE | 2018-08-09 10:03 | Hospitalist Depart ---
Discharge Summary Reason for Hosp/Final Diag: (1) Pneumonia, bacterial Status: Acute Hospital Course & Plan: His chest x-ray did show bilateral interstitial infiltrates. He also had a fever and elevated WBC at admission. His fever is resolved, but his WBC has increased, likely secondary to steroids. He has been on treatment with ceftriaxone and doxycycline. He converted to oral antibiotics 08/07. ABG performed 08/08 showed low pO2 at 56. Increased his oxygen needs to 5L, he will use 5L at all times. He will be started on Advair daily and albuterol as needed. He will continue 5 days of Omnicef and Doxycycline for a total of 10 day antibiotic treatment. He will follow up with Di Kay within one week. (2) Visual hallucination Status: Resolved Hospital Course & Plan: He did have hallucinations, which were attributed to the steroids. These have been discontinued, and he has had no further symptoms. (3) Elevated brain natriuretic peptide (BNP) level Status: Acute Hospital Course & Plan: He did have an elevated BNP, but had a normal ejection fraction on a Myoview last year. He is on chronic treatment with Lasix, which has been restarted. (4) Elevated troponin Status: Acute Hospital Course & Plan: His EKG is unchanged and he has no chest pain. The elevation is likely secondary to his renal disease. (5) CKD (chronic kidney disease) stage 3, GFR 30-59 ml/min Status: Chronic Hospital Course & Plan: His baseline creatinine is 1.8. He was slightly elevated above baseline at 2.1 at admission. Creatinine 1.4 today. (6) Type II diabetes mellitus Status: Chronic Hospital Course & Plan: He was on multiple medications prior to admission. He was placed on just glimepiride and Lantus. He was on sliding scale level #2 during admission. His sugars did elevated with steroids, but are improved since this has been stopped. He will continue his usual regimen at home. (7) Benign hypertension Status: Chronic Hospital Course & Plan: She is on chronic treatment with metoprolol and lisinopril. His blood pressures have been decreased during admission. He will resume metoprolol, but continue to hold Lisinopril. He will follow up with Di Kay regarding BP's to see if Lisinopril should be restarted. (8) Depression Status: Chronic Hospital Course & Plan: He is on chronic treatment with citalopram and donepezil. (9) SARAH (obstructive sleep apnea) Status: Chronic Hospital Course & Plan: He will increase oxygen at night to 5L with his CPAP. Encouraged patient to get new sleep study in next 2 months after pneumonia better. (10) Obesity, morbid Status: Chronic Departure Latest Vital Signs Vital Signs 08/05/18 08/09/18 08/09/18 04:00 07:28 09:43 Temp 98.0 Pulse 91 Resp 16 B/P (MAP) 137/54 (81) Pulse Ox 95 FiO2 60.0 Weight (Pounds): 320 Weight (Ounces): 9.0 Result Diagram: 08/09/1881308/09/18813 Condition: Improved Discharge: Home, Self Care Discharge Instructions Home Meds Active Scripts Albuterol Sulfate 90 Mcg/Act (PROAIR HFA 90 MCG/ACT) 8.5 Gm Hfa.aer.ad, 2 PUFF IH Q4-6H PRN for SHORTNESS OF BREATH, #1 INHALER Prov:PAWAN WONG [facility] 08/09/18 Fluticasone/Salmeterol (ADVAIR 250-50 DISKUS) 1 Each Disk.w.dev, 1 EACH IH BID, #1 INHALER Prov:PAWAN WONG [facility] 08/09/18 Doxycycline Hyclate (DOXYCYCLINE HYCLATE) 100 Mg Tablet, 100 MG PO BID for 5 Day s, #10 TAB Prov:PAWAN WONG [facility] 08/09/18 Cefdinir 300 Mg Cap (OMNICEF 300 MG CAP (OR EQUIV)) 300 Mg Cap, 300 MG PO BID for 5 Days, #10 CAP Prov:WONGPAWAN [facility] 08/09/18 Reported Medications Metoprolol Tartrate (METOPROLOL TARTRATE) 50 Mg Tab, 1 TAB PO BID, TAB 08/05/18 Metformin Hcl (METFORMIN HCL) 500 Mg Tablet, 2 TAB PO BID, TAB 08/05/18 Citalopram Hydrobromide (CITALOPRAM HBR) 40 Mg Tablet, 40 MG PO QAM, #5 TAB 08/05/18 Donepezil Hcl (DONEPEZIL HCL) 10 Mg Tablet, 10 MG PO QPM, TAB 08/04/18 Pioglitazone Hcl (PIOGLITAZONE HCL) 30 Mg Tablet, 30 MG PO QAM 08/04/18 Glimepiride (GLIMEPIRIDE) 2 Mg Tablet, 2 MG PO BID 08/04/18 Insulin Degludec (Tresiba Flextouch U-100) 100 Unit/Ml (3 Ml) Insuln.pen, [address] Oscar's office said to inject 30 units QAM. Pt. is to titrate up 2 units Q4D until breakfast readings are consistently between 80-130. 08/04/18 Dulaglutide (Trulicity) 1.5 Mg/0.5 Ml Pen.injctr, 1.5 MG IM QWEEK Every Sunday02/01/17 Canagliflozin (INVOKANA) 300 Mg Tablet, 300 MG PO QAM 02/01/17 Furosemide (FUROSEMIDE) 20 Mg Tablet, 1 TAB PO QAM, TAB 05/18/16 Atorvastatin Calcium (ATORVASTATIN CALCIUM) 40 Mg Tablet, 1 TAB PO QPM, TAB 05/01/16 Oxygen (OXYGEN) Inha, 5 L INH QDAY, #5 L 05/01/16 Ezetimibe (ZETIA) 10 Mg Tablet, 10 MG PO QAM, TAB 05/01/16 Multivitamin (DAILY VITAMIN) 1 Each Tablet, 1 EACH PO QDAY 02/24/15 Vitamin B Complex & Vit C No.4 (SUPER B COMPLEX) 150 Mg Tablet, 150 MG PO QDAY 02/24/15 Cholecalciferol (Vitamin D3) (VITAMIN D-3) 2,000 Unit Capsule, 5000 UNIT PO QDAY, CAPSULE 02/24/15 Aspirin (ASPIR 81) 81 Mg Tablet.dr, 81 MG PO QDAY, TAB 02/24/15 Discontinued Reported Medications Lisinopril (LISINOPRIL) 20 Mg Tablet, 20 MG PO QPM, TAB 05/01/16 Metoprolol Tartrate (METOPROLOL TARTRATE) 25 Mg Tablet, 50 MG PO BID, TAB 08/04/18 Metformin Hcl (METFORMIN HCL) 1,000 Mg Tablet, 2 TAB PO BID, TAB 08/04/18 Citalopram Hydrobromide (CITALOPRAM HBR) 20 Mg Tablet, 40 MG PO QDAY, #5 TAB 05/18/16 [place]-3 Fatty Acids/Fish Oil (FISH OIL 1,000 MG CAPSULE) 1 Each Capsule, 1 EACH PO DAILY, CAPSULE 02/01/17 Insulin Degludec (Tresiba Flextouch U-100) 100 Unit/Ml (3 Ml) Insuln.pen, 20 UNITS SC QAM 02/01/17 [poiglitazone] No Conflict Check, 30 MG PO DAILY 02/01/17 Glimepiride (GLIMEPIRIDE) 1 Mg Tablet, 1 MG PO BID 02/01/17 Metformin Hcl (METFORMIN HCL) 500 Mg Tablet, 1 TAB PO BID, TAB 02/01/17 Spironolactone (SPIRONOLACTONE) 25 Mg Tablet, 0.5 TAB PO QODAY, TAB 05/18/16 Diet: Diabetic Activity: As Tolerated Special Instructions: Follow up with Di Kay next week regarding oxygen and blood pressure. Wear 5L of oxygen at all times. Take antibiotics as prescribed. Start Advair inhaler twice daily. Use albuterol as needed for Shortness of breath. Copies to: DI KAY ; Venous Thromboembolism Antithrombotics Is Pt On Any Antithrombotics?: PAWAN Rogers Aug 09, 2018 10:03
== END 2018-08-09 11:30 | disposition home or self-care (01) | DRG 194 ==
LOC: ER 15:48 → MED 17:56 → UNDOADMIN 19:03 → MED 19:03 → UNDOADMIN 08-08 10:05 → MED 08-08 10:05 → UNDODISIN 08-09 11:30
PROVIDERS: ADMIT Internal Medicine; ATTEND Internal Medicine
PROC: 5A09357 Assistance with Respiratory Ventilation, Less than 24 Consecutive Hours, Continuous Positive Airway Pressure (ICD-10-PCS; principal; 2018-08-04)
DX: J15.9 Unspecified bacterial pneumonia (principal); Z68.42 Body mass index [BMI] 45.0-49.9, adult; T38.0X5A Adverse effect of glucocorticoids and synthetic analogues, initial encounter; E11.65 Type 2 diabetes mellitus with hyperglycemia; R44.1 Visual hallucinations; E11.22 Type 2 diabetes mellitus with diabetic chronic kidney disease; I12.9 Hypertensive chronic kidney disease with stage 1 through stage 4 chronic kidney disease, or unspecified chronic kidney disease; N18.3 Chronic kidney disease, stage 3 (moderate); F32.9 Major depressive disorder, single episode, unspecified; G47.33 Obstructive sleep apnea (adult) (pediatric); E66.01 Morbid (severe) obesity due to excess calories; F17.210 Nicotine dependence, cigarettes, uncomplicated; R09.02 Hypoxemia; I25.10 Atherosclerotic heart disease of native coronary artery without angina pectoris; Z88.8 Allergy status to other drugs, medicaments and biological substances; Z79.4 Long term (current) use of insulin; Z79.84 Long term (current) use of oral hypoglycemic drugs
CPT/HCPCS: 36415; 36416; 36600; 71045; 82040; 82247; 82310; 82374; 82435; 82565; 82803; 82947; 82948; 83605; 83690; 83880; 84075; 84132; 84155; 84295; 84450; 84460; 84484; 84520; 85025; 87070; 87502; 93005; 94640; 94660; 94667; 94668; 96361; 96374; 96375; 99285; J0696; J1650; J1815; J1940; J2930; J3490; J7030; J7050; J7626

== ENCOUNTER → 2018-08-28 | Outpatient (CLI) | payer OTHER ==
[2018-08-05 10:52] VITALS: BMI 44.5
[~2018-08-28] MED LIST changes: +ALBU8.5H IH; +CEF300 PO; +DONE10TA38 PO; +DOXY-179 PO; +FLUT1DIS28 IH; +GLIM2TAB43 PO; +INSU100I8 SQ; +METF-452 PO; +METO-253 PO
[2018-08-28 13:14] LABS: PLATELET COUNT, AUTOMATED 204 K/uL (150-450)
--- NOTE | 2018-08-28 15:33 | RADIOLOGY IMAGING REPORT ---
FACILITY: [facility] PATIENT NAME: Drake Nava : 1955 MR: [id number] V: [id number] EXAM DATE: ORDERING PHYSICIAN: DI JARRETT TECHNOLOGIST: Location: [facility] Patient: Drake Nava : 1955 Visit/Account:[id number] Date of Sevice: 08/28/2018 2 VIEWS CHEST INDICATION: Follow-up pneumonia COMPARISON: X-ray examination of the chest from August 08, 2018 FINDINGS: Cardiac silhouette appears prominent, stable as compared to prior exam. There continues to be mild c entral vascular prominence with diffuse central interstitial coarsening. Small bilateral pleural eff usions which appear increased in size as compared to prior exam. Concomitant bibasilar airspace cons olidation in the dependent bases. IMPRESSION: 1. Diffuse interstitial prominence with small bilateral effusions. The constellation of findings is suspicious for CHF. The interstitial prominence throughout can also be secondary to a viral bronchi tis or interstitial pneumonitis. 2. Mild bibasilar airspace consolidation associated with a small bilateral effusions Report Dictated By: Jose De Jesus Alejandra MD at 08/28/2018 3:25 PM Report E-Signed By: Jose De Jesus Alejandra MD at 08/28/2018 3:28 PM WSN:[email or web address]
== END ==
LOC: RAD 12:07
PROVIDERS: ATTEND Nurse Practitioner Family
DX: J90 Pleural effusion, not elsewhere classified (principal); I50.9 Heart failure, unspecified; J15.9 Unspecified bacterial pneumonia; E11.65 Type 2 diabetes mellitus with hyperglycemia
CPT/HCPCS: 36415; 71046; 82040; 82247; 82310; 82374; 82435; 82565; 82947; 83036; 83880; 84075; 84132; 84155; 84295; 84450; 84460; 84520; 85025

== ENCOUNTER → 2018-08-28 | Outpatient (CLI) | payer OTHER ==
[2018-08-05 10:52] VITALS: BMI 44.5
== END ==
LOC: LAB 12:10
PROVIDERS: ATTEND Internal Medicine Nephrology
DX: E11.22 Type 2 diabetes mellitus with diabetic chronic kidney disease (principal); I12.9 Hypertensive chronic kidney disease with stage 1 through stage 4 chronic kidney disease, or unspecified chronic kidney disease; N18.3 Chronic kidney disease, stage 3 (moderate); I10 Essential (primary) hypertension; R80.1 Persistent proteinuria, unspecified; Z79.4 Long term (current) use of insulin
CPT/HCPCS: 82040; 82570; 84100; 84156

== ENCOUNTER → 2018-09-11 | Outpatient (CLI) | payer OTHER ==
[2018-08-05 10:52] VITALS: BMI 44.5
== END ==
LOC: LAB 13:17
PROVIDERS: ATTEND Nurse Practitioner Family
DX: I50.9 Heart failure, unspecified (principal); J15.9 Unspecified bacterial pneumonia; E11.22 Type 2 diabetes mellitus with diabetic chronic kidney disease; N18.3 Chronic kidney disease, stage 3 (moderate); E11.65 Type 2 diabetes mellitus with hyperglycemia
CPT/HCPCS: 36415; 82040; 82247; 82310; 82374; 82435; 82565; 82728; 82947; 83880; 84075; 84132; 84155; 84295; 84450; 84460; 84520

== ENCOUNTER → 2018-09-11 | Outpatient (CLI) | payer OTHER ==
[2018-08-05 10:52] VITALS: BMI 44.5
== END ==
LOC: LAB 13:19
PROVIDERS: ATTEND Internal Medicine Nephrology
DX: N18.9 Chronic kidney disease, unspecified (principal); R60.0 Localized edema
CPT/HCPCS: 83735

== ENCOUNTER → 2018-11-04 | Outpatient (CLI) | payer OTHER ==
[2018-08-05 10:52] VITALS: BMI 44.5
== END ==
LOC: LAB 09:20
PROVIDERS: ATTEND Internal Medicine
DX: I25.10 Atherosclerotic heart disease of native coronary artery without angina pectoris (principal); I10 Essential (primary) hypertension; E78.00 Pure hypercholesterolemia, unspecified
CPT/HCPCS: 36415; 82040; 82247; 82310; 82374; 82435; 82465; 82565; 82947; 83718; 84075; 84132; 84155; 84295; 84450; 84460; 84478; 84520

== ENCOUNTER → 2018-11-28 | Outpatient (CLI) | payer OTHER ==
[2018-08-05 10:52] VITALS: BMI 44.5
== END ==
LOC: LAB 09:48
PROVIDERS: ATTEND Internal Medicine Cardiovascular Disease
DX: N18.3 Chronic kidney disease, stage 3 (moderate) (principal)
CPT/HCPCS: 36415; 82040; 82247; 82310; 82374; 82435; 82565; 82947; 84075; 84132; 84155; 84295; 84450; 84460; 84520

== ENCOUNTER → 2018-11-28 | Outpatient (CLI) | payer OTHER ==
[2018-08-05 10:52] VITALS: BMI 44.5
[2018-11-28 10:30] LABS: PLATELET COUNT, AUTOMATED 198 K/uL (150-450)
[2018-11-28 10:50] LABS: LDL CHOLESTEROL 55 mg/dl
== END ==
LOC: LAB 09:45
PROVIDERS: ATTEND Nurse Practitioner Family
DX: N18.3 Chronic kidney disease, stage 3 (moderate) (principal); E11.9 Type 2 diabetes mellitus without complications; E78.00 Pure hypercholesterolemia, unspecified; D51.0 Vitamin B12 deficiency anemia due to intrinsic factor deficiency; R53.83 Other fatigue
CPT/HCPCS: 82465; 82607; 82728; 83036; 83718; 84478; 85025; 86140